=== PATIENT | male | born 1940 | race Caucasian/White ===

== ENCOUNTER 2025-06-27 18:37 | Emergency (ER) | payer OTHER ==
[~2025-06-27] VITALS: Ht 175.3 cm; Wt 72.6 kg
[2025-06-27 18:37] VITALS: TEMP 98.4
[2025-06-27 21:47] VITALS: BP 136/70; O2SAT 97
== END 2025-06-27 21:48 ==
LOC: ER 18:46
DX: Z04.3 Encounter for examination and observation following other accident (principal); I10 Essential (primary) hypertension; I25.10 Atherosclerotic heart disease of native coronary artery without angina pectoris; R51.9 Headache, unspecified; Z13.89 Encounter for screening for other disorder; Z79.01 Long term (current) use of anticoagulants; Z86.73 Personal history of transient ischemic attack (TIA), and cerebral infarction without residual deficits; Z88.1 Allergy status to other antibiotic agents; Z86.79 Personal history of other diseases of the circulatory system
CPT/HCPCS: 70450-TC; 70486-TC; 71045-TC; 72170-TC

== ENCOUNTER 2025-08-12 18:14 | Emergency (ER) | payer OTHER ==
[~2025-08-12] VITALS: Ht 172.7 cm; Wt 67.6 kg
[2025-08-12 19:16] LABS: PLATELET COUNT (AUTO) 207 K/uL (150-450); RED BLOOD CELL COUNT(AUTO) 4.62 MIL/uL (4.5-6.0); RED CELL DISTRIBUTION WIDTH 19.7 % (11.5-15.0); WHITE BLOOD COUNT (AUTO) 14.1 K/uL (4.3-11.0)
[2025-08-12 19:25] LABS: APPEARANCE,URINE CLOUDY (CLEAR); BLOOD, URINE 2+ Ery/uL (NEGATIVE); LEUKOCYTE ESTERASE ,URINE 3+ (NEGATIVE); NITRITE, URINE POSITIVE (NEGATIVE); UGLUCOSE NEGATIVE (NEGATIVE)
[2025-08-12 19:29] LABS: CALCIUM, SERUM 9.0 mg/dL (8.5-10.1); CREATININE 1.5 mg/dL (0.6-1.3); SODIUM SERUM 142 mmol/L (136-145); UREA NITROGEN, BLOOD 28 mg/dL (7-18)
[2025-08-12 19:34] LABS: ADD URINE CULTURE YES
[2025-08-12 19:35] LABS: SQUAMOUS EPITHELIAL CELL,UR 0-2 /HPF (None Seen)
[2025-08-12 19:42] LABS: ASPARTATE AMINOTRANSFERASE 15 U/L (15-37); NT-PRO BNP 1466 pg/mL (0-125); TOTAL PROTEIN, SERUM 7.3 g/dL (6.4-8.2)
[2025-08-12 19:43] LABS: BAND % (MANUAL) 1 % (0.0-5.0); LYMPHOCYTES % (MANUAL) 5 % (16-48); METAMYELOCYTES % 2 % (0-0); MONOCYTES % (MANUAL) 16 % (0-11.0); MYELOCYTES % 1 % (0-0); NEUTROPHILS % (MANUAL) 75 (42-76); PLATELET ESTIMATE ADEQUATE
[2025-08-12] MEDS ORDERED: CEFTRIAXONE 1GM BAG (ER ONLY) 50 ML IV ONE (20:11)
[2025-08-12] MEDS: CEFTRIAXONE 1GM BAG (ER ONLY) 50 ML IV ONE (20:25)
[2025-08-12] MEDS: IV NS 0.9% 1,000 ML BAG IV ONE (20:25)
[2025-08-13 00:05] VITALS: BP 128/61; TEMP 98; O2SAT 97
== END 2025-08-13 01:46 | disposition short-term general hospital (02) ==
LOC: ER 18:22
DX: N39.0 Urinary tract infection, site not specified (principal); I11.9 Hypertensive heart disease without heart failure; I25.10 Atherosclerotic heart disease of native coronary artery without angina pectoris; Z86.73 Personal history of transient ischemic attack (TIA), and cerebral infarction without residual deficits; Z88.1 Allergy status to other antibiotic agents; Z20.822 Contact with and (suspected) exposure to COVID-19
CPT/HCPCS: 99285; 96365; 71045; 87426; 93005; 87804 ×2; 84145; 85027; 80048; 87077; 87040 ×2; 87086; 83605; 83690; 80076; 83735; 85007; 87186; 81001; 36415; 84484; 83880; 82962 ×2; J7030; J0696